=== PATIENT | female | born 1980 | race Caucasian/White ===

== ENCOUNTER 2016-11-17 09:31 | Emergency (ER) | payer OTHER ==
[2016-11-17 09:35] VITALS: BP 111/63; PULSE 68; TEMP 98.2; BMI 21.2
[2016-11-17] MEDS ORDERED: ONDANSETRON 4 MG/2 ML VIAL IVPUSH ONE (10:06)
[2016-11-17] MEDS ORDERED: KETOROLAC TROMETHAMINE 30 MG/1 ML VIAL IVPUSH ONE (10:06)
[2016-11-17] MEDS ORDERED: SODIUM CHLORIDE 1,000 ML IV STA (10:06)
--- NOTE | 2016-11-17 10:07 | PDOC ---
History of Present Illness - General Chief Complaint: Pain, Acute Stated Complaint: PAIN/ ABD, BACK Time Seen by Provider: 11/17/16 09:54 History Source: Patient - History of Present Illness Timing/Duration: reports: intermittent Quality: reports: other Abdominal Pain Onset Location: reports: flank Past History - Past Medical History Allergies/Adverse Reactions: Allergies Allergy/AdvReac Type Severity Reaction Status Date / Time No Known Allergies Allergy Verified 11/17/16 09:32 Home Medications: Ambulatory Orders Acetaminophen [Tylenol .Extra-Strength -] 500 mg PO Q6H PRN 11/17/16 - Psycho/Social/Smoking Cessation Hx Anxiety: No Suicidal Ideation: No Smoking History: Never smoked Have you smoked in the past 12 months: No Information on smoking cessation initiated: No Hx Alcohol Use: No Drug/Substance Use Hx: No Substance Use Type: None Review of Systems - Review of Systems Constitutional: No: Chills, Fever ABD/GI: Yes: Nausea. No: Vomiting : Yes: Flank Pain. No: Burning, Dysuria, Hematuria *Physical Exam - Vital Signs Last Vital Signs Temp Pulse Resp BP Pulse Ox 98.2 F 68 18 111/63 100 11/17/16 09:32 11/17/16 09:32 11/17/16 09:32 11/17/16 09:32 11/17/16 09:32 - Physical Exam General Appearance: Yes: Appropriately Dressed. No: Apparent Distress HEENT: positive: Normal Voice Neck: positive: Supple Respiratory/Chest: negative: Respiratory Distress Female Pelvic Exam: positive: normal external exam, cervical os closed, normal adnexa. negative: CMT, discharge, lesions, adnexal tenderness, vaginal bleeding Gastrointestinal/Abdominal: positive: Tender (minimal ttp to R groin, no hernia , not tender over mcburneys, no CVAT), Soft Musculoskeletal: negative: CVA Tenderness Extremity: positive: Normal Inspection Integumentary: positive: Dry, Warm Neurologic: positive: Fully Oriented, Alert, Normal Mood/Affect ED Treatment Course - LABORATORY CBC & Chemistry Diagram: 11/17/16 10:19 11/17/16 10:19 - RADIOLOGY Radiology Studies Ordered: Category Date Time Status ABDOMEN & PELVIS CT W/O CONTR [CT] Stat CT Scan 11/17/16 10:00 Ordered Medical Decision Making - Medical Decision Making 08/22/17 10:04 35 yo F, endorses h/o renal stones, s/p surgery for same in 2006 at [facility] , here w/ flank pain similar to her stone. Patient's reporting right lower back pain radiating to right groin since yesterday, intermittent and reoccurred this a.m. with nausea. No vomiting, dysuria, hematuria, fever or chills See exam R flank pain H/o renal stones -pain control -zofran -IVF -labs -CT 11/17/16 13:[address] negative for acute pathology including stone. Also seen are "multiple opacities in buttocks b/l with skin thickening, need clinical correlation". Pt has no buttocks pain/swelling and no gluteal surgery including prosthesis. Pt states R flank pain resolved w/ meds. Pelvic exam unremarkable. Unclear etiology for pain, possible mittelschemerz as pt not sure where she is at in her cycle. Also now reporting intermittent constipation though moved bowels 2 days ago. Will discharge w/ PMD f/u w/ instruction for Motrin as needed for pain and OTC stool regimen for constipation as needed. Will dc w/ PMD f/u 11/17/16 13:44 11/17/16 13:44 *DC/Admit/Observation/Transfer Diagnosis at time of Disposition: Flank pain - Discharge Dispostion Disposition: HOME Condition at time of disposition: Improved - Referrals Referrals: Patrick Montes De Oca [Primary Care Provider] - - Patient Instructions Printed Discharge Instructions: DI for Flank Pain Additional Instructions: The cause for your pain today was unclear as labs and CAT scan were all normal. Take Motrin as needed and try [id number] milk of magnesia for constipation as needed. If symptoms persist, please follow-up with PMD. If symptoms worsen or develop new symptoms, return to ED immediately
[2016-11-17] MEDS ORDERED: KETOROLAC TROMETHAMINE 30 MG/1 ML VIAL ONE (10:22)
[2016-11-17] MEDS ORDERED: ONDANSETRON 4 MG/2 ML VIAL ONE (10:22)
[2016-11-17 10:59] LABS: BASOPHIL 0.9 % (0-2.0); EOSINOPHIL 1.2 % (0-4.5); MCH 28.2 pg (25.7-33.7); MCHC 31.3 g/dl (32.0-36.0); MEAN CELL VOLUME 90.2 fl (80-96); MEAN PLT VOLUME 9.3 fl (7.5-11.1); NEUTROPHILS 57.7 % (42.8-82.8); PLATELET COUNT 273 K/MM3 (134-434); RDW 15.5 % (11.6-15.6); URINE APPEARANCE CLEAR; URINE BILIRUBIN NEGATIVE (NEGATIVE); URINE BLOOD 1+ (NEGATIVE); URINE COLOR LTYELLOW; URINE GLUCOSE (UA) NEGATIVE (NEGATIVE); URINE KETONE NEGATIVE (NEGATIVE); URINE LEUK ESTERASE NEGATIVE (NEGATIVE); URINE NITRITE NEGATIVE (NEGATIVE); URINE PROTEIN NEGATIVE (NEGATIVE); URINE UROBILINOGEN NEGATIVE mg/dL (0.2-1.0); WHITE BLOOD COUNT 5.2 K/mm3 (4.0-10.0)
[2016-11-17 11:22] LABS: ALBUMIN 3.8 g/dl (3.4-5.0); ANION GAP 10 (8-16); BILIRUBIN,TOTAL 0.5 mg/dL (0.2-1.0); CALCIUM 8.6 mg/dL (8.5-10.1); CO2 24 mmol/L (21-32); CREATININE 0.6 mg/dL (0.55-1.02); GLUCOSE,RANDOM 79 mg/dL (74-106); SGPT/ALT 15 U/L (12-78); TOT PROT 7.5 g/dl (6.4-8.2)
[2016-11-17 11:23] LABS: ALK PHOS 61 U/L (45-117)
[2016-11-17 11:44] LABS: SGOT/AST 22 U/L (15-37); URINE MUCUS RARE; URINE RBC 4 /hpf (0-3); URINE WBC 1 /hpf (3-5)
== END 2016-11-17 13:55 | disposition home or self-care (01) ==
LOC: JER 09:31
PROC: 3E0333Z Introduction of Anti-inflammatory into Peripheral Vein, Percutaneous Approach (ICD-10-PCS; principal; 2016-11-17)
PROC: 3E033GC Introduction of Other Therapeutic Substance into Peripheral Vein, Percutaneous Approach (ICD-10-PCS; 2016-11-17)
DX: M54.5 Low back pain (principal); Z87.442 Personal history of urinary calculi
CPT/HCPCS: 36415; 74176-TC; 80053; 81003; 81015; 84703; 85025; 96374; 96375; 99282-25

== ENCOUNTER 2017-05-27 05:01 | Day surgery (SDC) | payer OTHER ==
[2017-05-26 14:35] VITALS: BMI 25.2
[2017-05-27] MEDS ORDERED: PROPOFOL 20 ML ONE ×3 (07:19→08:14)
[2017-05-27] MEDS ORDERED: LIDOCAINE HCL/PF 2% SDV 5ML VIAL ONE (07:20)
[2017-05-27] MEDS ORDERED: DEXAMETHASONE SOD PHOSPHATE 4 MG/1 ML VIAL ONE (07:20)
[2017-05-27] MEDS ORDERED: KETOROLAC TROMETHAMINE 30 MG/1 ML VIAL ONE (07:20)
[2017-05-27] MEDS ORDERED: ROCURONIUM BROMIDE 50 MG/5 ML VIAL ONE ×2 (07:21→07:28)
[2017-05-27] MEDS ORDERED: MIDAZOLAM HCL 2 MG/2 ML SINGLE DOSE VIAL ONE (07:22)
[2017-05-27] MEDS ORDERED: oxyCODONE HCL 5 MG TABLET PO PRN ×2 (07:34)
[2017-05-27] MEDS ORDERED: ONDANSETRON 4 MG/2 ML VIAL IVPUSH PRN (07:34)
[2017-05-27] MEDS ORDERED: LACTATED RINGERS SOLUTION 1,000 ML IV SCH (07:45)
[2017-05-27] MEDS ORDERED: IBUPROFEN 400 MG TABLET (FP) PO PRN (08:09)
[2017-05-27] MEDS ORDERED: ACETAMINOPHEN 325 MG TABLET (FP) PO PRN (08:09)
--- NOTE | 2017-05-27 08:09 | HP ---
History & Physical Update - History History: No Change - Physical Physical: No Change - Assessment Assessment: No Change - Plan Plan: No Change
--- NOTE | 2017-05-27 08:11 | OP ---
Operative Note - Note: Operative Date: 05/27/17 Pre-Operative Diagnosis: Multiparity. Voluntary Sterilization Operation: Laparoscopic bilateral salpingectomy. Left laparoscopic ovarian cystectomy Post-Operative Diagnosis: Same as Pre-op Surgeon: Silvia Sánchez Retail Account Specialist: Perfecto Alcantara Anesthesia: General Estimated Blood Loss (mls): 5 Operative Report Dictated: Yes
[2017-05-27] MEDS ORDERED: NEOSTIGMINE METHYLSULFATE 0.5 MG/ML - 10 ML MDV ONE ×2 (08:15→08:17)
[2017-05-27] MEDS ORDERED: GLYCOPYRROLATE 0.2 MG/1 ML VIAL ONE ×2 (08:15→08:18)
[2017-05-27] MEDS ORDERED: SODIUM CHLORIDE 0.9% P/F 10 ML VIAL IJ ONE (08:29)
[2017-05-27] MEDS ORDERED: LIDOCAINE HCL 2% JELLY (5 ML/TUBE) ONE (08:29)
[2017-05-27] MEDS ORDERED: ceFAZolin SODIUM 1 GM VIAL IVPB ONE (08:29)
[2017-05-27] MEDS ORDERED: BUPIVACAINE HCL/PF 0.5% (5MG/ML) 10 ML VIAL IJ ONE (08:40)
[2017-05-27 11:12] VITALS: TEMP 98.6
[2017-05-27 12:55] VITALS: BP 95/62; PULSE 62
--- NOTE | 2017-05-28 14:39 | PATH ---
Surgical Pathology Report Patient Name: EVER MERAZ [facility]. Rec. #: [id number] /Age/Gender: 1980 (Age: 36) / F Account: [id number] Location: [facility] SURGICAL Taken: 05/27/2017 Received: 05/27/2017 Reported: 05/28/2017 Physicians: Silvia Sánchez M.D. Specimen(s) Received A: LEFT FALLOPIAN TUBE B: RIGHT FALLOPIAN TUBE C: LEFT OVARIAN CYST WALL Clinical History Sterilization Final Diagnosis A. LEFT FALLOPIAN TUBE, SALPINGECTOMY: BENIGN FALLOPIAN TUBE INCLUDING FIMBRIATED END. B. RIGHT FALLOPIAN TUBE, SALPINGECTOMY: BENIGN FALLOPIAN TUBE INCLUDING FIMBRIATED END. C. LEFT OVARIAN CYST WALL, EXCISION: BENIGN LUTEAL CYST. Electronically Signed Patrick Segura M.D. Gross Description A. Received in formalin labeled "left fallopian tube," is a 5.5 cm in length fimbriated fallopian tube. The outer surface is fong purple and smooth. Sectioning reveals an unremarkable lumen. S[employer] sections are submitted in 2 cassettes as follows: 1-fimbria; 2-cross sections of fallopian tube. B. Received in formalin labeled "right fallopian tube," is a 4.8 cm in length fimbriated fallopian tube. The outer surface is pink-conway and smooth. Sectioning reveals an unremarkable lumen. Soybean Grower sections are submitted in 2 cassettes as follows: 1-fimbria; 2-cross sections of fallopian tube. C. Received in formalin labeled "left ovarian cyst wall," is a 2.8 x 2.3 x 0.4 cm aggregate of conway-yellow soft tissue fragments, consistent with a disrupted cyst. The specimen is entirely submitted in 2 cassettes. /05/27/2017 saudi05/27/2017
--- NOTE | 2017-07-08 09:12 | OP ---
DATE OF OPERATION: 05/27/2017 PREOPERATIVE DIAGNOSIS: Voluntary sterilization. OPERATION: Laparoscopic bilateral salpingectomy and left ovarian cystectomy. SURGEON: Jessica Ramires MD CURING PICKLING PACKER: MAU Keane ANESTHESIA: General. ANESTHESIOLOGIST: Rasheed Escudero MD PROCEDURE: Patient was taken to the operating room and placed in dorsal lithotomy position, prepped and draped in the usual sterile fashion. Oliveira catheter was then placed into the bladder after a timeout had been called in accordance with hospital regulation. After Oliveira catheter had been placed, attention was then drawn to the umbilicus where a 5-mm umbilical incision was made. Veress needle was inserted into the cavity. Approximately 3-4 L of CO2 was insufflated in the cavity. Veress needle was then removed, and a 5-mm trocar was inserted. Laparoscope and camera was attached. Two lower trocars were inserted in the left and the right side under direct visualization after a scalpel had been used to make a 5-mm incision. Trocars were inserted under direct visualization. Examination revealed normal tubes and a left ovarian cyst. EndoShears were then used to open the cyst, and the cyst wall was then removed and submitted to Pathology after blunt and sharp dissection was done on the left ovary. Attention was then drawn to the tubes where bilateral salpingectomies were done using LigaSure. Coagulation and cutting of the whole fallopian tube was done from the fimbriated end to the cornua bilaterally on the left and the right side. Specimens were then removed and submitted to Pathology. Hemostasis was achieved. After all hemostasis had been achieved, estimated blood loss was less than 5 mL. All trocars were then removed. CO2 was removed from the abdomen. Incisions were then closed using 4-0 Biosyn suture in subcuticular fashion. Wounds were washed and dressed. Patient tolerated the procedure well, was taken to the recovery room in stable condition. JESSICA RAMIRES M.D. [id number]
== END 2017-05-27 13:00 | disposition home or self-care (01) ==
LOC: JASU-SURG 05:01
PROVIDERS: ATTEND Obstetrics & Gynecology
PROC: 0U574ZZ Destruction of Bilateral Fallopian Tubes, Percutaneous Endoscopic Approach (ICD-10-PCS; 2017-05-27)
PROC: 0UB14ZZ Excision of Left Ovary, Percutaneous Endoscopic Approach (ICD-10-PCS; principal; 2017-05-27 08:00)
DX: Z30.2 Encounter for sterilization (principal); N83.202 Unspecified ovarian cyst, left side
CPT/HCPCS: 88302-TC; 88305-TC; 94760